=== PATIENT | female | born 1995 | race Native Hawaiian/Other Pacific Islander ===

== ENCOUNTER 2017-01-22 15:10 | Emergency (ER) | payer SELFPAY ==
[2017-01-22] MEDS ORDERED: BOOSTRIX IM ONE (18:04)
[2017-01-22] MEDS ORDERED: XYLOCAINE 1% 20 mL INFILTRATI ONE (18:04)
[2017-01-22] MEDS ORDERED: NACL 0.9% IR ONE (18:05)
--- NOTE | 2017-01-22 18:14 | Emergency Department Report ---
- General Chief Complaint: Laceration/Recheck/Suture Stated Complaint: RT HAND CUT Time Seen by Provider: 01/22/17 17:56 Source: patient Mode of arrival: Ambulatory Limitations: No Limitations - History of Present Illness Initial Comments: Patient comes into the ER today with complaints of laceration noted to her right third, fourth, fifth fingers just prior to arrival. Patient states that she was cutting some chicken and actually cut her fingers. Patient is unsure of when her last tetanus shot was. Patient denies any other complaints. -: Sudden - Related Data Previous Rx's Medication Instructions Recorded Last Taken Type Cephalexin [Keflex] 500 mg PO TID #30 capsule 01/22/17 Unknown Rx traMADol [Ultram 50 MG tab] 50 mg PO Q6HR PRN #15 tablet 01/22/17 Unknown Rx Allergies Allergy/AdvReac Type Severity Reaction Status Date / Time No Known Allergies Allergy Unverified 01/22/17 15:17 ED Review of Systems ROS: Stated complaint: RT HAND CUT Other details as noted in HPI Constitutional: denies: chills, fever Eyes: denies: eye pain, eye discharge, vision change ENT: denies: ear pain, throat pain Respiratory: denies: cough, shortness of breath, wheezing Cardiovascular: denies: chest pain, palpitations Endocrine: no symptoms reported Gastrointestinal: denies: abdominal pain, nausea, diarrhea Genitourinary: denies: urgency, dysuria, discharge Musculoskeletal: denies: back pain, joint swelling, arthralgia Skin: denies: rash, lesions Neurological: denies: headache, weakness, paresthesias Psychiatric: denies: anxiety, depression Hematological/Lymphatic: denies: easy bleeding, easy bruising ED Past Medical Hx - Past Medical History Previous Medical History?: No - Surgical History Past Surgical History?: No - Social History Smoking Status: Never Smoker Substance Use Type: None - Medications Home Medications: Home Medications Medication Instructions Recorded Confirmed Last Taken Type Cephalexin [Keflex] 500 mg PO TID #30 capsule 01/22/17 Unknown Rx traMADol [Ultram 50 MG tab] 50 mg PO Q6HR PRN #15 tablet 01/22/17 Unknown Rx ED Physical Exam - General Limitations: No Limitations General appearance: alert, in no apparent distress - Head Head exam: Present: atraumatic, normocephalic - Eye Eye exam: Present: normal appearance - ENT ENT exam: Present: mucous membranes moist - Neck Neck exam: Present: normal inspection - Respiratory Respiratory exam: Present: normal lung sounds bilaterally. Absent: respiratory distress - Cardiovascular Cardiovascular Exam: Present: regular rate, normal rhythm. Absent: systolic murmur, diastolic murmur, rubs, gallop - GI/Abdominal GI/Abdominal exam: Present: soft, normal bowel sounds - Extremities Exam Extremities exam: Present: normal inspection, full ROM, tenderness (tenderness noted to right anterior/palmar surface of third, fourth, fifth fingers at PIP joints in area of lacerations.), normal capillary refill, other (patient noted to have 3 individual lacerations at the right third, fourth, fifth PIP joints of fingers. Laceration to fifth finger is 1 cm, laceration to fourth finger is 1 cm, laceration to third finger is 1 cm. Each laceration is linear and subcutaneous in characteristics.). Absent: joint swelling - Back Exam Back exam: Present: normal inspection - Neurological Exam Neurological exam: Present: alert, oriented X3 - Psychiatric Psychiatric exam: Present: normal affect, normal mood - Skin Skin exam: Present: warm, dry, intact, normal color. Absent: rash ED Course Vital Signs 01/22/17 15:17 Temperature 98.7 F Pulse Rate 102 H Respiratory 18 Rate Blood Pressure 138/97 O2 Sat by Pulse 100 Oximetry - Laceration /Wound Repair Right Anterior Palm Finger Wound Location: upper extremity (right palmar third, fourth, fifth fingers at PIP joints) Wound Length (cm): 3 Wound's Depth, Shape: linear (subcutaneous) Wound Explored: clean Irrigated w/ Saline (ccs): 30 Betadine Prep?: Yes Anesthesia: 1% Lidocaine Volume Anesthetic (ccs): 3 Wound Repaired With: sutures Suture Size/Type: 4:0, proline Number of Sutures: 10 Layer Closure?: No Sterile Dressing Applied?: Yes Progress: Patient tolerated laceration repair without any complications or difficulty. Laceration repaired with intermittent sutures. Laceration repair actually consisted of 3 individual lacerations with each laceration being approximately 1 cm in length on the right third, fourth, fifth fingers at PIP joint. 5 sutures placed in right fifth finger, 3 sutures placed in right fourth finger, 2 sutures placed in right third finger. ED Medical Decision Making - Medical Decision Making Patient tolerated procedure very well without any complications. Patient was given an update to her tetanus immunization here in the ER today. I have instructed patient on proper care and handling of wounds. Patient is to return to the ER in the next 10-14 days for suture removal. Critical care attestation.: If time is entered above; I have spent that time in minutes in the direct care of this critically ill patient, excluding procedure time. ED Disposition Clinical Impression: Finger laceration Qualifiers: Encounter type: initial encounter Damage to nail status: without damage Foreign body presence: without foreign body Laterality: right Disposition: DC- TO HOME OR SELFCARE Is pt being admited?: No Does the pt Need Aspirin: No Condition: Good Instructions: Suture Care (ED), Finger Laceration (ED) Prescriptions: Cephalexin [Keflex] 500 mg PO TID #30 capsule traMADol [Ultram 50 MG tab] 50 mg PO Q6HR PRN #15 tablet PRN Reason: Pain Referrals: PRIMARY CARE, [Primary Care Provider] - 3-5 Days Time of Disposition: 19:11
[2017-01-22 20:42] VITALS: BP 126/89
== END 2017-01-22 19:25 | disposition home or self-care (01) ==
LOC: ED 15:10
DX: S61.212A Laceration without foreign body of right middle finger without damage to nail, initial encounter (principal); S61.214A Laceration without foreign body of right ring finger without damage to nail, initial encounter; S61.216A Laceration without foreign body of right little finger without damage to nail, initial encounter; W26.8XXA Contact with other sharp object(s), not elsewhere classified, initial encounter; Y93.89 Activity, other specified; Y99.8 Other external cause status; Y92.009 Unspecified place in unspecified non-institutional (private) residence as the place of occurrence of the external cause
CPT/HCPCS: 90471; 90715